=== PATIENT | female | born 1990 | race Caucasian/White ===

== ENCOUNTER → 2018-06-04 | Outpatient (CLI) | payer MEDICARE, MEDICAID ==
[~2018-06-04] MED LIST: GADOBUTROL 7.5 MMOL/7.5 ML PFS ONE
== END | disposition home or self-care (01) ==
LOC: CFH 12:38
PROVIDERS: ATTEND Psychiatry & Neurology Neurology
DX: R20.8 Other disturbances of skin sensation (principal)
CPT/HCPCS: 70553; A9585

== ENCOUNTER 2019-02-06 12:59 | Emergency (ER) | payer MEDICAID, MEDICARE ==
[~2019-02-06] VITALS: Ht 154.9 cm; Wt 74.8 kg
[2019-02-06] MEDS ORDERED: KETOROLAC 30 MG/1 ML IM ONE (13:30)
[2019-02-06] MEDS ORDERED: KETOROLAC 60 MG/2 ML ONE (13:42)
[2019-02-06 13:45] VITALS: BP 122/83
--- NOTE | 2019-02-06 13:45 | NUR ---
BREAK RN FOR PRIMARY RN EVANGELIST. PT MEDICATED NOTED PER ERP ORDER FOR 3/10 RIGHT ARM PAIN. US AT BEDSIDE. DENIES NEED TO USE RESTROOM. VSS. CALL LIGHT IN REACH
[2019-02-06 13:48] LABS: BASOPHILS # (AUTO) 0.03 x10^3/uL (0-0.1); BASOPHILS % (AUTO) 0 % (0-1); EOSINOPHILS # (AUTO) 0.13 x10^3/uL (0-0.4); EOSINOPHILS % (AUTO) 2 % (1-7); LYMPHOCYTES # (AUTO) 2.81 x10^3/uL (1-3.4); LYMPHOCYTES % (AUTO) 32 % (22-44); MD NO; MEAN CORPUSCULAR HEMOGLOBIN 31.2 pg (27.0-34.8); MEAN CORPUSCULAR HGB CONC 33.8 g/dL (32.4-35.8); MEAN CORPUSCULAR VOLUME 92.3 fL (80-100); MEAN PLATELET VOLUME 7.3 fL (7.4-10.4); MONOCYTES # (AUTO) 0.37 x10^3/uL (0.2-0.8); MONOCYTES % (AUTO) 4 % (2-9); NEUTROPHILS # (AUTO) 5.44 x10^3/uL (1.8-6.8); NEUTROPHILS % (AUTO) 62 % (42-75); PLATELET COUNT 259 x10^3/uL (130-400); RED CELL DISTRIBUTION WIDTH 13.1 % (9.6-15.2)
--- NOTE | 2019-02-06 13:53 | NUR ---
BREAK RN. REPORT AND CARE BACK TO PRIMARY JACKY BLANCA
[2019-02-06 13:59] LABS: ALBUMIN 4.1 g/dL (3.4-5.0); ANION GAP 9 mmol/L (5-15); CHLORIDE 107 mmol/L (98-107); CREATININE 0.93 mg/dL (0.55-1.02)
== END 2019-02-06 15:10 | disposition home or self-care (01) ==
LOC: ED 14:11
DX: I80.8 Phlebitis and thrombophlebitis of other sites (principal); G43.909 Migraine, unspecified, not intractable, without status migrainosus; F17.200 Nicotine dependence, unspecified, uncomplicated; M25.532 Pain in left wrist
CPT/HCPCS: 36415; 80048; 82040; 85025; 93971; 96372; 99284; J1885

== ENCOUNTER 2019-02-19 11:59 | Emergency (ER) | payer MEDICARE, MEDICAID ==
[~2019-02-19] VITALS: Ht 154.9 cm; Wt 74.3 kg
[2019-02-19 15:12] VITALS: BP 120/80
== END 2019-02-19 15:14 | disposition home or self-care (01) ==
LOC: ED 14:05
DX: R51 Headache (principal); F25.9 Schizoaffective disorder, unspecified
CPT/HCPCS: 96374; 96375; 99284; J1200; J1885; J2765

== ENCOUNTER 2019-07-13 18:35 | Emergency (ER) | payer MEDICARE, MEDICAID ==
[~2019-07-13 18:35] MED LIST changes: +ARIP30TA22 PO; +ARIP30TA4 PO; +ATEN25TA PO; +CHOL40002 PO; +DIAZ10TA4 PO; +ETON1VAG VG; -GADOBUTROL 7.5 MMOL/7.5 ML PFS ONE; +LEVO25TA4 PO; +QUET100T PO; +QUET100T4 PO; +SPIR100T4 PO; +SUMA50TA4 PO
--- NOTE | 2019-07-13 18:59 | NUR ---
MANAGER OF ENGINEERING: NIL WHEN CALLED FOR TRIAGE X 2
--- NOTE | 2019-07-13 19:08 | NUR ---
NICK RN: NIL WHEN CALLED FOR TRIAGE. RN CHECKED LOBBY BATHROOM FOR PT, PT NOT FOUND. PT ASSUMED TO HAVE LEFT
== END 2019-07-13 19:09 | disposition left against medical advice (07) ==
LOC: ED 19:03
DX: G43.909 Migraine, unspecified, not intractable, without status migrainosus (principal); Z53.21 Procedure and treatment not carried out due to patient leaving prior to being seen by health care provider

== ENCOUNTER 2019-08-07 11:38 | Outpatient (CLI) | payer MEDICARE, MEDICAID ==
[2019-08-07] MEDS ORDERED: CHOL500045 PO (11:59)
[2019-08-07] MEDS ORDERED: OXCA150T3 PO (12:01)
[2019-08-07] MEDS ORDERED: [UNRECOGNIZED DRUG - OTHER] PO (12:01)
[2019-08-07] MEDS ORDERED: CARI3CAP PO (12:01)
[2019-08-07 13:00] LABS: BASOPHILS # (AUTO) 0.09 x10^3/uL (0-0.1); BASOPHILS % (AUTO) 1 % (0-1); EOSINOPHILS # (AUTO) 0.04 x10^3/uL (0-0.4); EOSINOPHILS % (AUTO) 0 % (1-7); LYMPHOCYTES # (AUTO) 2.47 x10^3/uL (1-3.4); LYMPHOCYTES % (AUTO) 25 % (22-44); MD NO; MEAN CORPUSCULAR HEMOGLOBIN 30.8 pg (27.0-34.8); MEAN CORPUSCULAR HGB CONC 33.8 g/dL (32.4-35.8); MEAN CORPUSCULAR VOLUME 91.3 fL (80-100); MEAN PLATELET VOLUME 7.3 fL (7.4-10.4); MONOCYTES # (AUTO) 0.35 x10^3/uL (0.2-0.8); MONOCYTES % (AUTO) 4 % (2-9); NEUTROPHILS # (AUTO) 6.93 x10^3/uL (1.8-6.8); NEUTROPHILS % (AUTO) 70 % (42-75); PLATELET COUNT 318 x10^3/uL (130-400); RED BLOOD COUNT 5.25 x10^6/uL (3.82-5.3); RED CELL DISTRIBUTION WIDTH 13.7 % (9.6-15.2)
== END 2019-08-07 23:59 | disposition home or self-care (01) ==
LOC: STAR 11:38
PROVIDERS: ATTEND Obstetrics & Gynecology Female Pelvic Medicine and Reconstructive Surgery
DX: Z01.818 Encounter for other preprocedural examination (principal); N92.6 Irregular menstruation, unspecified; N39.3 Stress incontinence (female) (male); N94.6 Dysmenorrhea, unspecified
CPT/HCPCS: 36415; 85025

== ENCOUNTER 2019-08-11 08:57 | Day surgery (SDC) | payer MEDICARE, MEDICAID ==
[~2019-08-11] VITALS: Ht 154.9 cm; Wt 72.8 kg
[~2019-08-11 08:57] MED LIST changes: +BUPIVACAINE/PF-EPI 0.25% 1:200K ONE; +CARI3CAP PO; +CHOL500045 PO; +GENTAMICIN 80 MG/2 ML ONE; +OXCA150T3 PO; +[UNRECOGNIZED DRUG - OTHER] PO
[2019-08-11] MEDS ORDERED: SCOPOLAMINE PATCH, 1.5MG PATCH.TD72 TD STA (09:12)
[2019-08-11] MEDS ORDERED: FAMOTIDINE 20 MG TABLET PO STA (09:12)
[2019-08-11] MEDS ORDERED: LACTATED RINGERS 1,000 ML IV SCH (09:13)
[2019-08-11 09:24] VITALS: BP 108/73
[2019-08-11 10:01] LABS: HCG UR SG 1.022 (1.003-1.030)
[2019-08-11] MEDS ORDERED: OXYcodone 5 MG/5 ML ORAL.SOL UDC PO PRN (14:30)
[2019-08-11] MEDS ORDERED: KETOROLAC 30 MG/1 ML IV PRN (14:30)
[2019-08-11] MEDS ORDERED: HYDROcodone/APAP 7.5-325MG/15ML UDC PO PRN (14:30)
[2019-08-11] MEDS ORDERED: MEPERIDINE/PF 25MG/ML,1ML IVPush PRN (14:30)
[2019-08-11] MEDS ORDERED: HYDROmorphone 2 MG/ML, 1ML IVPush PRN (14:30)
[2019-08-11] MEDS ORDERED: MORPHINE SULFATE 4 MG/ML, 1ML IVPush PRN (14:30)
[2019-08-11] MEDS ORDERED: MIDAZOLAM 1 MG/ML, 2ML IV PRN (14:30)
[2019-08-11] MEDS ORDERED: DIAZEPAM 5 MG TABLET PO ONE (14:30)
[2019-08-11] MEDS ORDERED: MIDAZOLAM 1 MG/ML, 2ML ONE ×3 (15:11→18:05)
[2019-08-11] MEDS ORDERED: PROPOFOL 10 MG/ML, 20ML ONE (15:11)
[2019-08-11] MEDS ORDERED: ROCURONIUM 10MG/ML,5ML ONE (15:11)
[2019-08-11] MEDS ORDERED: GLYCOPYRROLATE 0.2MG/1ML, 5ML ONE (15:11)
[2019-08-11] MEDS ORDERED: FENTANYL PF 250 MCG/5ML ONE (15:11)
[2019-08-11] MEDS ORDERED: ONDANSETRON 2MG/ML, 2ML ONE (16:24)
[2019-08-11] MEDS ORDERED: METOPROLOL 1 MG/ML, 5ML ONE (16:24)
[2019-08-11] MEDS ORDERED: KETOROLAC 30 MG/1 ML ONE (17:49)
[2019-08-11] MEDS ORDERED: FENTANYL PF 100 MCG/2ML ONE (18:04)
[2019-08-11] MEDS ORDERED: OXYcodone 5 MG/5 ML ORAL.SOL UDC ONE (18:05)
[2019-08-11] MEDS: FENTANYL PF 100 MCG/2ML IV PRN ×2 (18:07→18:17)
[2019-08-11] MEDS ORDERED: ONDA4TAB7 PO (20:30)
== END 2019-08-11 20:45 | disposition home or self-care (01) ==
LOC: OUT 08:57
PROVIDERS: ATTEND Obstetrics & Gynecology Female Pelvic Medicine and Reconstructive Surgery
DX: N92.1 Excessive and frequent menstruation with irregular cycle (principal); N94.6 Dysmenorrhea, unspecified; N94.10 Unspecified dyspareunia; N81.89 Other female genital prolapse; N39.46 Mixed incontinence; N32.81 Overactive bladder; G43.909 Migraine, unspecified, not intractable, without status migrainosus; J45.909 Unspecified asthma, uncomplicated; E03.9 Hypothyroidism, unspecified; E66.9 Obesity, unspecified; Z68.30 Body mass index [BMI] 30.0-30.9, adult; Z88.8 Allergy status to other drugs, medicaments and biological substances; Z88.6 Allergy status to analgesic agent; Z91.040 Latex allergy status
CPT/HCPCS: 57265; 57282; 57288; 58552; 81025; 88307; C1771; J1580; J1885; J2250; J2405; J2704; J3010; J7120

== ENCOUNTER 2019-08-15 06:13 | Emergency (ER) | payer MEDICARE, MEDICAID ==
[~2019-08-15] VITALS: Ht 154.9 cm; Wt 74.6 kg
[~2019-08-15 06:13] MED LIST changes: -BUPIVACAINE/PF-EPI 0.25% 1:200K ONE; -GENTAMICIN 80 MG/2 ML ONE; +ONDA4TAB7 PO
--- NOTE | 2019-08-15 06:30 | NUR ---
THIS IS A 28Y F THAT COMES IN FOR ABD PAIN AND CONSTIPATION. PT HAD HYSTERECTOMY AND BLADDER SLING PLACED SUNDAY. PT HAS BEEN TAKING PAIN MEDS EVERY 4HOURS FOR PAIN, LAST MED WAS AT 0100. PT REPORTS TAKING MIRALAX WITH NO RELIEF. PT ALSO STS SHE HAS BEEN UNABLE TO URINATE SINCE YESTERDAY. PT CONNECTED TO MONITORING.
--- NOTE | 2019-08-15 06:32 | NUR ---
MD TO BEDSIDE TO ASSESS PT
[2019-08-15] MEDS ORDERED: SODIUM CHLORIDE FLUSH 10ML SYR IVF ONE (07:00)
[2019-08-15] MEDS ORDERED: SODIUM CHLORIDE 0.9% 1,000ML IVBOLUS ONE (07:00)
[2019-08-15] MEDS ORDERED: HYDROmorphone 2 MG/ML, 1ML IVPush PRN (07:00)
--- NOTE | 2019-08-15 07:00 | NUR ---
REPORT REVIECED FROM JUAN RICO
[2019-08-15] MEDS ORDERED: HYDROmorphone 1 MG/ML, 1ML INJ ONE (07:02)
[2019-08-15 07:07] LABS: MEAN CORPUSCULAR HEMOGLOBIN 30.7 pg (27.0-34.8); MEAN CORPUSCULAR HGB CONC 33.3 g/dL (32.4-35.8); MEAN CORPUSCULAR VOLUME 92.3 fL (80-100); MEAN PLATELET VOLUME 7.6 fL (7.4-10.4); PLATELET COUNT 237 x10^3/uL (130-400); RED BLOOD COUNT 5.04 x10^6/uL (3.82-5.3); RED CELL DISTRIBUTION WIDTH 13.6 % (9.6-15.2)
[2019-08-15 07:20] LABS: ALANINE AMINOTRANSFERASE 21 U/L (12-78); ALBUMIN 3.7 g/dL (3.4-5.0); ANION GAP 10 mmol/L (5-15); CALCIUM 9.1 mg/dL (8.5-10.1); CHLORIDE 105 mmol/L (98-107); CREATININE 1.03 mg/dL (0.55-1.02)
[2019-08-15 07:23] LABS: ALKALINE PHOSPHATASE 83 U/L (45-117); BILIRUBIN,TOTAL 0.4 mg/dL (0.2-1.0)
[2019-08-15 07:37] LABS: BASOPHILS # (AUTO) 0.01 x10^3/uL (0-0.1); BASOPHILS % (AUTO) 0 % (0-1); EOSINOPHILS # (AUTO) 0.09 x10^3/uL (0-0.4); EOSINOPHILS % (AUTO) 1 % (1-7); LYMPHOCYTES # (AUTO) 1.73 x10^3/uL (1-3.4); LYMPHOCYTES % (AUTO) 11 % (22-44); MD SCAN; MONOCYTES # (AUTO) 0.09 x10^3/uL (0.2-0.8); MONOCYTES % (AUTO) 1 % (2-9); NEUTROPHILS # (AUTO) 13.67 x10^3/uL (1.8-6.8); NEUTROPHILS % (AUTO) 88 % (42-75)
[2019-08-15] MEDS ORDERED: MAGNESIUM CITRATE 300ML ORAL SOL PO ONE (08:00)
[2019-08-15 08:20] VITALS: BP 118/76
--- NOTE | 2019-08-15 08:35 | NUR ---
POSITIVE REFLIEF AFTER FLEET ENEMA
[2019-08-15 08:58] LABS: CULTURE INDICATED? YES
[2019-08-15 08:59] LABS: MICROSCOPIC INDICATED
--- NOTE | 2019-08-15 09:23 | NUR ---
PATIENT NOT WANTING TO WAIT FOR DIAGNOSTIC RESULTS, PORISITVE RELIEF FROM ENEMA. UNWILING TO WAIT- LEFT AMA. ABHIJEET LOPEZ NOTIFIED.
== END 2019-08-15 09:26 | disposition left against medical advice (07) ==
LOC: ED 06:38
DX: K59.00 Constipation, unspecified (principal); R10.30 Lower abdominal pain, unspecified; F17.200 Nicotine dependence, unspecified, uncomplicated
CPT/HCPCS: 36415; 74018; 80053; 81001; 83605; 85025; 87086; 96374; 99284; J1170; J7030

== ENCOUNTER 2019-08-26 20:41 | Emergency (ER) | payer MEDICARE, MEDICAID ==
[~2019-08-26] VITALS: Ht 154.9 cm; Wt 72.3 kg
[2019-08-26 21:43] LABS: BASOPHILS # (AUTO) 0.17 x10^3/uL (0-0.1); BASOPHILS % (AUTO) 1 % (0-1); EOSINOPHILS # (AUTO) 0.16 x10^3/uL (0-0.4); EOSINOPHILS % (AUTO) 1 % (1-7); LYMPHOCYTES # (AUTO) 3.86 x10^3/uL (1-3.4); LYMPHOCYTES % (AUTO) 26 % (22-44); MD NO; MEAN CORPUSCULAR HEMOGLOBIN 29.9 pg (27.0-34.8); MEAN CORPUSCULAR HGB CONC 33.4 g/dL (32.4-35.8); MEAN CORPUSCULAR VOLUME 89.6 fL (80-100); MEAN PLATELET VOLUME 7.1 fL (7.4-10.4); MONOCYTES % (AUTO) 4 % (2-9); NEUTROPHILS # (AUTO) 10.24 x10^3/uL (1.8-6.8); NEUTROPHILS % (AUTO) 68 % (42-75); PLATELET COUNT 479 x10^3/uL (130-400); RED BLOOD COUNT 4.83 x10^6/uL (3.82-5.3); RED CELL DISTRIBUTION WIDTH 13.6 % (9.6-15.2)
[2019-08-26 21:48] LABS: MICROSCOPIC INDICATED
[2019-08-26 21:54] LABS: ALANINE AMINOTRANSFERASE 23 U/L (12-78); ALBUMIN 3.4 g/dL (3.4-5.0); ANION GAP 7 mmol/L (5-15); CALCIUM 8.9 mg/dL (8.5-10.1); CHLORIDE 107 mmol/L (98-107); CREATININE 0.95 mg/dL (0.55-1.02)
[2019-08-26 21:56] LABS: CULTURE INDICATED? YES
[2019-08-26 21:57] LABS: ALKALINE PHOSPHATASE 106 U/L (45-117); BILIRUBIN,TOTAL 0.2 mg/dL (0.2-1.0); TOTAL PROTEIN 7.2 g/dL (6.4-8.2)
--- NOTE | 2019-08-26 22:27 | NUR ---
PT RESTING WITH EYES CLOSED. PT UNABLE TO URINATE AT THIS TIME. MONITOR IN PLACE.
[2019-08-26 22:58] VITALS: BP 96/52
== END 2019-08-26 23:22 | disposition home or self-care (01) ==
LOC: ED 22:45
DX: N93.9 Abnormal uterine and vaginal bleeding, unspecified (principal); Z90.710 Acquired absence of both cervix and uterus
CPT/HCPCS: 36415; 80053; 81001; 83690; 85025; 87086; 99283

== ENCOUNTER 2019-09-24 14:35 | Emergency (ER) | payer MEDICARE, MEDICAID ==
[~2019-09-24] VITALS: Ht 162.6 cm; Wt 73.7 kg
[2019-09-24 15:06] VITALS: BP 119/69
--- NOTE | 2019-09-24 15:24 | NUR ---
DR LOPEZ AT
== END 2019-09-24 15:56 | disposition home or self-care (01) ==
LOC: ED 15:50
DX: T81.31XA Disruption of external operation (surgical) wound, not elsewhere classified, initial encounter (principal); R10.33 Periumbilical pain; F20.9 Schizophrenia, unspecified
CPT/HCPCS: 99283

== ENCOUNTER 2021-04-19 17:41 | Emergency (ER) | payer MEDICARE, OTHER ==
[~2021-04-19] VITALS: Ht 154.9 cm; Wt 79.0 kg
[~2021-04-19 17:41] MED LIST changes: -QUET100T PO; +QUET100T2 PO
[2021-04-19 17:46] VITALS: BP 135/88
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
--- NOTE | 2021-04-19 18:30 | NUR ---
JESSICA SOCIAL WORK AT BEDSIDE
[2021-04-19 18:35] LABS: BASOPHILS % (AUTO) 1 % (0-1); EOSINOPHILS % (AUTO) 0 % (1-7); LYMPHOCYTES % (AUTO) 32 % (22-44); MEAN CORPUSCULAR HEMOGLOBIN 30.4 pg (27.0-34.8); MEAN CORPUSCULAR HGB CONC 35.3 g/dL (32.4-35.8); MEAN PLATELET VOLUME 7.1 fL (7.4-10.4); MONOCYTES % (AUTO) 5 % (2-9); NEUTROPHILS % (AUTO) 62 % (42-75); PLATELET COUNT 334 x10^3/uL (130-400); RED BLOOD COUNT 5.03 x10^6/uL (3.82-5.3); RED CELL DISTRIBUTION WIDTH 13.2 % (9.6-15.2)
[2021-04-19 18:42] LABS: ALBUMIN 3.8 g/dL (3.4-5.0); ANION GAP 5 mmol/L (5-15); CALCIUM 8.7 mg/dL (8.5-10.1); CHLORIDE 108 mmol/L (98-107)
[2021-04-19 18:50] LABS: ALANINE AMINOTRANSFERASE 28 U/L (12-78); ALKALINE PHOSPHATASE 98 U/L (45-117); BILIRUBIN,TOTAL 0.3 mg/dL (0.2-1.0); CREATININE 0.92 mg/dL (0.55-1.02); TOTAL PROTEIN 7.4 g/dL (6.4-8.2)
[2021-04-19 18:52] LABS: SALICYLATE LEVEL < 1.7 mg/dL (2.8-20.0)
--- NOTE | 2021-04-19 19:00 | NUR ---
FIRST ENCOUNTER WITH PATIENT. PATIENT SITTING IN STRETCHER WITH HER HEAD IN HER HANDS. PATIENT APPEARS TEARFUL. DENIES NEEDS AT THIS TIME. CALL MUIR IN REACH. WILL CONTINUE TO MONITOR.
[2021-04-19 19:08] LABS: AMPHETAMINE SCREEN, URINE Negative (Negative); BARBITURATE SCREEN, URINE Negative (Negative); BENZODIAZEPINE SCREEN, URINE Positive (Negative); CANNABINOID SCREEN, URINE Negative (Negative); COCAINE SCREEN, URINE Negative (Negative); METHADONE SCREEN, URINE Negative (Negative); OPIATE SCREEN, URINE Negative (Negative)
--- NOTE | 2021-04-19 20:14 | NUR ---
Patient given discharge instructions and they have confirmed that they understand the instructions. Patient ambulatory with steady gait. NAD, all questions answered appropriately, denies additional needs at this time. No personal belongings left in room after discharge. Patient requesting anxiety medication for home.
== END 2021-04-19 20:19 | disposition home or self-care (01) ==
LOC: ED 20:10
DX: F25.1 Schizoaffective disorder, depressive type (principal)
CPT/HCPCS: 36415; 80053; 80299; 80307; 80320; 80329; 84439; 84443; 85025; 99283; G0480